=== PATIENT | female | born 1970 | race Caucasian/White ===

== ENCOUNTER 2019-02-09 09:35 | Emergency (ER) | payer MEDICARE ==
[~2019-02-09] VITALS: Ht 152.4 cm; Wt 90.9 kg
[2019-02-09 09:48] VITALS: Ht 152.4 cm; Wt 90.9 kg
[2019-02-09 10:40] LABS: BASOPHILS 0.2 % (0-2); HEMATOCRIT 36.7 % (36.0-48.0); HEMOGLOBIN 11.7 g/dL (12-16); IMMATURE GRANULOCYTES 0.2 % (0-5); LYMPHOCYTES 27.7 % (15-50); MCH 25.6 pg (26.0-34.0); MCHC 31.9 g/dL (31.0-37.0); MCV 80.3 fL (80.0-100.0); MEAN PLATELET VOLUME 9.2 fL (7.4-10.4); MONOCYTES 9.4 % (2-11); NEUTROPHILS 61.5 % (40-80); PLATELET COUNT 230 10x3/uL (130-400); RBC 4.57 10x6/uL (4.00-5.40); RDW 17.5 % (11.5-14.5); WBC 4.1 10x3/uL (4.8-10.8)
[2019-02-09 10:51] LABS: ALBUMIN 3.8 g/dL (3.4-5.0); ALKALINE PHOSPHATASE 149 U/L (46-116); ALT (SGPT) 47 U/L (10-68); BILIRUBIN - TOTAL 0.29 mg/dL (0.2-1.3); CALC OSMOLALITY 279 mosm/kg (275-300); CALCIUM 9.1 mg/dL (8.5-10.1); CARBON DIOXIDE 23.3 mmol/L (21.0-32.0); CHLORIDE - SERUM 103 mmol/L (98-107); CREATININE - SERUM 0.8 mg/dL (0.6-1.3); GLUCOSE 108 mg/dL (74-106); MAGNESIUM - SERUM 1.8 mg/dL (1.8-2.4); POTASSIUM - SERUM 3.9 mmol/L (3.5-5.1); SODIUM 140 mmol/L (136-145); UREA NITROGEN 12 mg/dL (7-18); eGFR NON AFRICAN AMERICAN 81 mL/min (90-120)
--- NOTE | 2019-02-09 10:54 | NUR ---
DR LESTER NOTIFIED AND SITTER ORDERED. SITTER AT BEDSIDE. NOTIFIED CHARGE NURSE AND ATTENDING IN REGARDS TO ASSESSMENT FINDINGS. RESOURCES GIVEN TO PT AND SAFETY PLAN INITIATED.
[2019-02-09 10:56] LABS: UDS - AMPHET NEGATIVE QUAL (NEGATIVE); UDS - BARB NEGATIVE QUAL (NEGATIVE); UDS - BENZO NEGATIVE QUAL (NEGATIVE); UDS - COCAINE NEGATIVE QUAL (NEGATIVE); UDS - OPIATE NEGATIVE QUAL (NEGATIVE); UDS - PCP NEGATIVE QUAL (NEGATIVE); UDS - THC NEGATIVE QUAL (NEGATIVE)
[2019-02-09 11:10] LABS: APPEARANCE CLEAR (CLEAR); BACTERIA MODERATE /hpf (NEGATIVE); BILIRUBIN NEGATIVE (NEGATIVE); COLOR YELLOW (YELLOW); EPITHELIAL CELLS 0-5 /hpf (0-5); GLUCOSE NEGATIVE (NEGATIVE); KETONE NEGATIVE (NEGATIVE); NITRITE NEGATIVE (NEGATIVE); PROTEIN NEGATIVE (NEGATIVE); RED CELLS - URINE 0-5 /hpf (0-5); SPECIFIC GRAVITY 1.015 (1.005-1.020); UROBILINOGEN NORMAL (NORMAL)
[2019-02-09 15:49] VITALS: BP 128/92
== END 2019-02-09 17:14 ==
LOC: D.ER 09:35
PROVIDERS: Emergency Medicine
DX: T65.92XA Toxic effect of unspecified substance, intentional self-harm, initial encounter (principal); F60.3 Borderline personality disorder; F32.9 Major depressive disorder, single episode, unspecified

== ENCOUNTER 2020-02-10 13:46 | Observation (INO) | payer MEDICARE ==
[~2020-02-10] VITALS: Ht 167.6 cm; Wt 90.9 kg
[2020-02-10 14:13] LABS: BASOPHILS 0.2 % (0-2); EOSINOPHILS 0.8 % (0-7); HEMATOCRIT 35.8 % (36.0-48.0); HEMOGLOBIN 11.2 g/dL (12-16); IMMATURE GRANULOCYTES 0.3 % (0-5); LYMPHOCYTES 40.2 % (15-50); MCHC 31.3 g/dL (31.0-37.0); MCV 73.5 fL (80.0-100.0); MEAN PLATELET VOLUME 7.7 fL (7.4-10.4); MONOCYTES 6.6 % (2-11); NEUTROPHILS 51.9 % (40-80); RBC 4.87 10x6/uL (4.00-5.40); RDW 18.8 % (11.5-14.5); WBC 6.1 10x3/uL (4.8-10.8)
[2020-02-10 14:14] LABS: PLATELET COUNT 281 10x3/uL (130-400)
[2020-02-10 14:22] LABS: APTT 21.6 SECONDS (22.8-39.4); INR 0.96 (0.85-1.17); PROTIME 12.7 SECONDS (11.6-15.0)
[2020-02-10 14:43] LABS: CALC OSMOLALITY 279 mosm/kg (275-300); CALCIUM 8.3 mg/dL (8.5-10.1); CARBON DIOXIDE 21.5 mmol/L (21.0-32.0); CHLORIDE - SERUM 103 mmol/L (98-107); CREATININE - SERUM 1.3 mg/dL (0.6-1.3); GLUCOSE 127 mg/dL (74-106); POTASSIUM - SERUM 3.5 mmol/L (3.5-5.1); SODIUM 138 mmol/L (136-145); UREA NITROGEN 17 mg/dL (7-18); eGFR NON AFRICAN AMERICAN 46 mL/min (90-120)
[2020-02-10 14:52] LABS: HCG URINE NEGATIVE (NEGATIVE)
[2020-02-10 14:59] LABS: ALBUMIN 3.4 g/dL (3.4-5.0); ALKALINE PHOSPHATASE 159 U/L (30-120); ALT (SGPT) 32 U/L (10-68); BILIRUBIN - TOTAL 0.09 mg/dL (0.2-1.3); CKMB 0.9 U/L (0.0-3.6); CREATINE KINASE 96 UL (21-215); MAGNESIUM - SERUM 1.9 mg/dL (1.8-2.4); PROTEIN - SERUM 7.1 g/dL (6.4-8.2); TROPONIN-I < 0.017 ng/mL (0.000-0.060)
[2020-02-10 15:22] LABS: BILIRUBIN NEGATIVE (NEGATIVE); KETONE LARGE mg/dL (NEGATIVE); NITRITE NEGATIVE (NEGATIVE); UROBILINOGEN NORMAL mg/dL (< 2)
[2020-02-10 15:34] LABS: UDS - AMPHET NEGATIVE QUAL (NEGATIVE); UDS - BARB NEGATIVE QUAL (NEGATIVE); UDS - BENZO NEGATIVE QUAL (NEGATIVE); UDS - COCAINE NEGATIVE QUAL (NEGATIVE); UDS - OPIATE NEGATIVE QUAL (NEGATIVE); UDS - PCP NEGATIVE QUAL (NEGATIVE); UDS - THC NEGATIVE QUAL (NEGATIVE)
[2020-02-10] MEDS ORDERED: TRILEPTAL300 MG PO (16:01)
[2020-02-10] MEDS ORDERED: FOCALIN10 MG PO (16:01)
[2020-02-10] MEDS ORDERED: KLONOPIN1 MG PO (16:01)
[2020-02-10] MEDS ORDERED: BUPROPION HCL150 M1 PO (16:02)
[2020-02-10] MEDS ORDERED: THORAZINE50 MG PO (16:02)
[2020-02-10] MEDS ORDERED: AMITRIPTYLINE H50 MG PO (16:02)
[2020-02-10] MEDS ORDERED: PROZAC20 MG PO (16:02)
[2020-02-10] MEDS ORDERED: ABILIFY10 MG PO (16:03)
[2020-02-10] MEDS ORDERED: LOMOTIL 2.5-0.1 EAC1 (16:03)
[2020-02-10] MEDS ORDERED: ZOFRAN4 MG (16:03)
--- NOTE | 2020-02-10 16:11 | NUR ---
CONTACTED POISON CONTROL PER BRIAN, LABS FOR PSYCH AND ETOH LEVEL. MONITOR PATIENT.SYMPTOMATIC CARE
--- NOTE | 2020-02-10 16:36 | NUR ---
DR. LESTER NOTIFIED AND SITTER ORDERED. SITTER IN LINE OF SIGHT. NOTIFIED CHARGE NURSE AND ATTENDING IN REGARDS TO ASSESSMENT FINDINGS. RESOURCES GIVEN TO PT AND SAFETY PLAN INTIATED.
--- NOTE | 2020-02-10 16:46 | NUR ---
PT RETURNED FROM CT. IV INFILTRATED IN CT PER SAROJ MEDLEY.
--- NOTE | 2020-02-10 17:37 | NUR ---
PT LAYING IN BED. RESPIRATIONS ARE EVEN AND UNLABORED. MULTIPLE IV STICKS ATTEMPTED AT THIS TIME. WILL CONTINUE TO MONITOR.
[2020-02-10 17:52] VITALS: Ht 167.6 cm; Wt 90.9 kg
--- NOTE | 2020-02-10 19:30 | NUR ---
PATIENT RESTING ON STRETCHER AT THIS TIME, HER FIANCE AT BEDSIDE. VITAL SIGNS STABLE, PATIENT IS TEARFUL, DENIES SI AT THIS TIME, SITTER AT BEDSIDE, PURSE PLACED IN A BAG WITH NAME AND PLACED AT THE NURSES STATION. RROM CLEAR OF ANY POTENTIAL SI RISKS.
[2020-02-10 20:00] VITALS: BP 118/77
--- NOTE | 2020-02-10 20:09 | NUR ---
CLOSED CASE WITH BRIAN AT POISON CONTROL
--- NOTE | 2020-02-10 20:30 | NUR ---
DENIES SI AT THIS TIME, STILL TEARFUL, WITHIN SIGHT OF SITTER.
[2020-02-10 21:15] VITALS: BP 118/76
--- NOTE | 2020-02-10 22:00 | NUR ---
ANDI ACHARYA, PATIENT RESTING QUIETLY AT THIS TIME, SITTER AT BEDSIDE. PATIENT IS CALM AND COOPERATIVE, VITAL SIGNS STABLE.
[2020-02-10 23:00] VITALS: BP 119/71
--- NOTE | 2020-02-11 00:05 | NUR ---
RESTING QUIETLY AT THIS TIME, WITHIN LINE OF SITE OF SITTER.
[2020-02-11 02:01] VITALS: BP 123/72
[2020-02-11 04:00] VITALS: BP 104/67
--- NOTE | 2020-02-11 04:00 | NUR ---
RESTING QUIETLY, WITHIN LINE OF SITE OF SITTER, VITAL SIGNS STABLE.
--- NOTE | 2020-02-11 07:10 | NUR ---
MED GIVEN PER ORDER, BREAKFAST TRAY ORDERED, WITHIN IN LINE OF SITE OF SITTER, PATIENT IS CALM AND COOPERATIVE AT THIS TIME.
[2020-02-11 07:11] VITALS: BP 116/89
--- NOTE | 2020-02-11 07:11 | NUR ---
REPORT GIVEN TO LESLYE LONGORIA, PATIENT STABLE.
[2020-02-11 08:00] VITALS: BP 116/65
[2020-02-11 08:29] LABS: BASOPHILS 0.6 % (0-2); EOSINOPHILS 1.4 % (0-7); HEMATOCRIT 33.7 % (36.0-48.0); HEMOGLOBIN 10.2 g/dL (12-16); MCH 22.5 pg (26.0-34.0); MCHC 30.3 g/dL (31.0-37.0); MCV 74.4 fL (80.0-100.0); MEAN PLATELET VOLUME 8.1 fL (7.4-10.4); MONOCYTES 12.4 % (2-11); NEUTROPHILS 40.6 % (40-80); PLATELET COUNT 239 10x3/uL (130-400); RBC 4.53 10x6/uL (4.00-5.40); RDW 18.9 % (11.5-14.5)
[2020-02-11 08:39] LABS: WBC 3.5 10x3/uL (4.8-10.8)
[2020-02-11 08:50] LABS: ALBUMIN 3.1 g/dL (3.4-5.0); ANION GAP 10.5 mmol/L (8-16); BILIRUBIN - TOTAL 0.35 mg/dL (0.2-1.3); CALCIUM 8.4 mg/dL (8.5-10.1); CARBON DIOXIDE 26.8 mmol/L (21.0-32.0); CREATININE - SERUM 1.6 mg/dL (0.6-1.3); POTASSIUM - SERUM 3.3 mmol/L (3.5-5.1); PROTEIN - SERUM 6.3 g/dL (6.4-8.2)
[2020-02-11 12:00] VITALS: BP 138/85
--- NOTE | 2020-02-11 19:12 | NUR ---
PT RESTING QUIETLY WITH EYES CLOSED. RESPIRATIONS EVEN AND UNLABORED.
--- NOTE | 2020-02-11 19:39 | NUR ---
PT ALERT. UPDATES TO PATIENT MADE. SITTER PRESENT. PT CLEARED FOR PSYCH ADELINA CEMENT- WAITING ON COVID SCREEN.
[2020-02-11 19:57] VITALS: BP 119/71
--- NOTE | 2020-02-11 21:37 | NUR ---
PT DOING WELL. CONSENTS TO TRANSFER. PT GIVEN NIGHTLY MEDS. SITTER WITHIN ARMS REACH.
--- NOTE | 2020-02-11 21:49 | NUR ---
NO BEDS AT [facility]. RECORDS FAXED TO [facility].
--- NOTE | 2020-02-12 00:48 | NUR ---
[facility] DR MADRIGAL
--- NOTE | 2020-02-12 01:00 | NUR ---
SPOKE WITH DR KELLER. VERBAL ORDER TO TRANSFER AND VERBAL TRANSFER AUTHORIZATION-CERTIFICATION OBTAINED
--- NOTE | 2020-02-12 01:15 | NUR ---
REPORT TO SWATI SAMAYOA ON PICU AT [facility]. EMS NOTIFIED.
[2020-02-12 02:31] VITALS: BP 118/78
--- NOTE | 2020-02-12 02:31 | NUR ---
[facility]. BELONGINGS TO TRANSFER SERVICE.
== END 2020-02-12 02:31 | disposition other institution (70) ==
LOC: D.ER 13:46 → D.EDHOLD 17:36 → OBSVTIME 17:37 → D.EDHOLD 02-11 12:32
PROVIDERS: Family Medicine; ADMIT Family Medicine; ATTEND Family Medicine
DX: T51.2X2A Toxic effect of 2-Propanol, intentional self-harm, initial encounter (principal); T49.0X2A Poisoning by local antifungal, anti-infective and anti-inflammatory drugs, intentional self-harm, initial encounter; T65.892A Toxic effect of other specified substances, intentional self-harm, initial encounter; R19.7 Diarrhea, unspecified; F32.9 Major depressive disorder, single episode, unspecified; D64.9 Anemia, unspecified; E83.51 Hypocalcemia; R73.9 Hyperglycemia, unspecified